=== PATIENT | female | born 1995 | race Two or more races ===

== ENCOUNTER 2017-07-29 02:19 | Emergency (ER) | payer OTHER, BC ==
[2017-07-29 02:30] VITALS: BP 136/94; PULSE 87; RESP 16; TEMP 98.6; O2SAT 98
--- NOTE | 2017-07-29 03:30 | EDPHY ---
H & P Stated Complaint: c/o LUE pain/burn/numbness/cp radiating to L lat chest x 5 days, worse senia Time Seen by Provider: 07/29/17 03:19 HPI/ROS: Chief Complaint: Chest pain, left arm pain HPI: 22-year-old woman presenting with 3-4 days of central chest pain with pain in the left side of her breast. She has had a dry cough. No fevers with some chills. Has had some increasing fatigue. No shortness of breath. No nausea or vomiting. Does have a history of GERD but has not had any relief with Prilosec. Is not exertional. Does not have a family history of coronary artery disease. Pain is not pleuritic. ROS: 10 point Review of Systems is negative except as noted in the HPI. PMH: Denies Social History: No smoking, rare alcohol, no recreational drug use Family History: non-contributory Physical Exam: Gen: Awake, Alert, No Distress HEENT: Nose: no rhinorrhea Eyes: PERRLA, EOMI Mouth: Moist mucosa Neck: Supple, no JVD Chest: Reproducible tenderness of his sternum reproducing her presenting complaint, lungs clear to auscultation Heart: S1, S2 normal, no murmur Abd: Soft, non-tender, no guarding Back: no CVA tenderness, no midline tenderness Ext: no edema, non-tender Skin: no rash Neuro: CN II-XII intact, Sensation grossly intact, Strength 5/5 in bilateral upper and lower extremities - Medical/Surgical History Hx Asthma: No Hx Chronic Respiratory Disease: No Hx Diabetes: No Hx Cardiac Disease: No Hx Renal Disease: No Hx Cirrhosis: No Hx Alcoholism: No Hx HIV/AIDS: No Hx Splenectomy or Spleen Trauma: No Other PMH: anxiety, hx of dx of pleurisy - Social History Smoking Status: Never smoked Constitutional: Initial Vital Signs Temperature (C) 37 C 07/29/17 02:23 Heart Rate 87 07/29/17 02:23 Respiratory Rate 16 07/29/17 02:23 Blood Pressure 136/94 H 07/29/17 02:23 O2 Sat (%) 98 07/29/17 02:23 O2 Delivery Mode Room Air Allergies/Adverse Reactions: amoxicillin Allergy (Verified 07/29/17 02:30) Home Medications: Medication Instructions Recorded Control 07/29/17 Xanax 07/29/17 Medical Decision Making - Diagnostics EKG Interpretation: ECG time 3:33 a.m., sinus rhythm with a rate of 69, normal axis, normal intervals, no acute ST or T-wave abnormalities. Impression: Normal ECG. Imaging Results: Chest x-ray is negative per my interpretation. Imaging: I viewed and interpreted images myself ED Course/Re-evaluation: 22-year-old with left-sided and central chest discomfort with some arm discomfort. I think her symptoms are musculoskeletal. She has a normal ECG. She has normal chest x-ray. She has no risk factors for DVT or PE. She is Wells negative. She is otherwise well-appearing. I will discharge her with follow up as an outpatient. She will return for any concerns. Departure - Departure Disposition: Home, Routine, Self-Care Clinical Impression: Musculoskeletal chest pain Condition: Good Instructions: Musculoskeletal Pain (ED), Chest Pain (ED) Additional Instructions: Alternate acetaminophen (1000 mg) with ibuprofen (400 mg) every 4 hours as needed for fevers, chills, aches or pains. Follow up with [facility] in 2-3 days for further evaluation if symptoms are not improving. Return to the emergency depart for increasing chest pain, shortness of breath, fevers, chills, or any other concerns. Referrals: [facility] [Other] - As per Instructions
--- NOTE | 2017-07-29 03:34 | CPEKG ---
Heart Rate: 69 RR Interval: 870 P-R Interval: 196 QRSD Interval: 74 QT Interval: 372 QTC Interval: 399 P [place]: 75 QRS [place]: 56 T Wave [place]: 55 EKG Severity - NORMAL ECG - EKG Impression: SINUS RHYTHM Electronically Signed By: Dario Frazier 29-Jul-2017 07:18:10
== END 2017-07-29 04:34 | disposition home or self-care (01) ==
DX: R07.89 Other chest pain (principal)